=== PATIENT | male | born 1985 | race Asian ===

== ENCOUNTER 2017-04-20 06:55 | Day surgery (SDC) | payer OTHER ==
[2017-04-20] VITALS (11 sets, daily range): BP systolic 103–153; BP diastolic 51–73; PULSE 71–96; RESP 10–22; Ht 180.3 cm; Wt 108.3 kg
[~2017-04-20] VITALS: Ht 180.3 cm; Wt 108.3 kg
[~2017-04-20 06:55] MED LIST: CEFAZOLIN 2 GM/50 ML (PMX) 50 ML IVPB SCH; SOD CHLORIDE 0.9% 1,000 ML IV SCH
[2017-04-20] MEDS ORDERED: OLME40TA14 PO (08:01)
[2017-04-20] MEDS ORDERED: FENO135C4 PO (08:01)
[2017-04-20] MEDS ORDERED: BUPIVACAINE 0.25% (MPF) 30 ML INJ ONE (09:53)
[2017-04-20] MEDS ORDERED: POLYMYXIN/BACITRACIN 1L IRRIG ONE (09:53)
[2017-04-20] MEDS ORDERED: SUCCINYLCHOLINE CHLORIDE 100 MG/5 ML SYG IV ONE (10:06)
[2017-04-20] MEDS ORDERED: MIDAZOLAM 1 MG/ML 2 ML INJ ONE (10:06)
[2017-04-20] MEDS ORDERED: PROPOFOL 20 ML ONE ×2 (10:06→10:19)
[2017-04-20] MEDS ORDERED: FENTAnyl 50 MCG/ML VIAL ONE (10:06)
[2017-04-20] MEDS ORDERED: ROCURONIUM 50 MG INJ ONE ×2 (10:06→10:51)
[2017-04-20] MEDS ORDERED: LIDOCAINE 2% (SDV) 5 ML INJ ONE (10:06)
[2017-04-20] MEDS ORDERED: CEFAZOLIN 1 GM INJ ONE (10:22)
[2017-04-20] MEDS ORDERED: ONDANSETRON 4 MG INJ ONE (10:23)
[2017-04-20] MEDS ORDERED: DEXAMETHASONE 4 MG/ML 1 ML INJ ONE (10:23)
[2017-04-20] MEDS ORDERED: HYDROmorphONE 2 MG/ML SYG ONE (10:28)
[2017-04-20] MEDS ORDERED: EPHEDrine SULFATE 50 MG/5 ML SYG ONE (10:33)
[2017-04-20] MEDS ORDERED: SUGAMMADEX SODIUM 200 MG/2 ML VIAL IV ONE (11:11)
[2017-04-20] MEDS ORDERED: KETOROLAC 30 MG INJ ONE (11:14)
--- NOTE | 2017-04-20 11:19 | OPR ---
Date/Time of Note Date/Time of Note DATE: 04/20/17 TIME: 11:15 Operative Report Procedure Date: Apr 20, 2017 Preoperative Diagnosis large incarcerated left inguinal hernia Postoperative Diagnosis same Operation/Procedure Performed 1. open left incarcerated inguinal hernia repair with large size ultrapro hernia system mesh 2. therapeutic injection of subcutaneous local anesthesia Surgeon see signature line Weapons Specialist none Anesthesia Type: general Estimated Blood Loss: 10 - 50 ml's Transfusion none Specimen none Grafts/Implants none Complications none Pt Condition Post Procedure: stable Indications This is a 32-year-old obese male with a large left inguinal hernia that is incarcerated. He requests surgical repair. Risks alternatives benefits and percent were discussed the patient. Patient expressed understanding and consents to the operation. Procedure Description Patient is taken to the OR and prepped and draped in usual sterile fashion. Surgical timeout is performed. IV antibiotics were given. Left inguinal oblique incision is made with a 10 blade. Dissection cautery was carried down to the external oblique fascia which is opened with a 15 blade. This incision is extended medially inferiorly lateral superiorly with Metzenbaum scissors. Cord structure identified and encircled with a Milton drain large sliding hernia is reduced. The hernia sac is opened the hernia sac contents were then reduced into the abdomen. The hernia sac and then suture ligated with 0 Vicryl UR 6. The distal portion of the ultrapure hernia system mesh was affixed to this area with a running 0 Prolene from the pubic tubercle along the shelving of the inguinal ligament. The disc mesh was then secured to the internal oblique with interrupted 3-0 Vicryl. Onlay mesh was secured in a similar fashion with a running 0 Prolene from the pubic tubercle along the shelving of the inguinal ligament. Straps are created and encircled around the cord structures to re-create the inguinal ring with interrupted 0 Prolene. The onlay mesh is secured to the internal oblique with interrupted 3-0 Vicryl. Externally fascia is closed with running 3-0 Vicryl. Thalia's fascia is closed with interrupted 3-0 Vicryl. Skin is closed using skin nav. Therapeutic subcutaneous local anesthesia was injected throughout the incision site. Dry dressings were applied. Brian LO Apr 20, 2017 11:19
[2017-04-20] MEDS ORDERED: HYDROCODONE/APAP (5/325) TAB PO ONE (11:30)
[2017-04-20] MEDS ORDERED: DIPHENHYDRAMINE 50 MG INJ IV PRN (12:00)
[2017-04-20] MEDS ORDERED: HYDROmorphONE (0.2 MG/ML) 10ML SYG IV PRN ×3 (12:00)
[2017-04-20] MEDS ORDERED: OXYCODONE/ACETAMINOPHEN (5/325) TAB PO PRN ×2 (12:00)
[2017-04-20] MEDS ORDERED: PROCHLORPERAZINE 10 MG INJ IV PRN (12:00)
[2017-04-20] MEDS ORDERED: MEPERIDINE 25 MG INJ IV PRN (12:00)
[2017-04-20] MEDS ORDERED: ONDANSETRON 4 MG INJ IV PRN (12:00)
[2017-04-20] MEDS ORDERED: FENTAnyl 50 MCG/ML VIAL IV PRN (12:00)
== END 2017-04-20 12:54 | disposition home or self-care (01) ==
LOC: SDS 06:55
PROVIDERS: ATTEND Surgery
DX: K40.90 Unilateral inguinal hernia, without obstruction or gangrene, not specified as recurrent (principal); I10 Essential (primary) hypertension; E66.9 Obesity, unspecified; Z68.33 Body mass index [BMI] 33.0-33.9, adult
CPT/HCPCS: 49507; C1781; J0690; J1100; J1170; J1885; J2250; J2405; J3010; Z7512; Z7610